=== PATIENT | female | born 1975 | race Caucasian/White ===

== ENCOUNTER 2018-11-05 19:47 | Emergency (ER) | payer OTHER ==
[2018-11-05 20:07] VITALS: BP 139/88
[2018-11-05] MEDS ORDERED: DOXYcycline CAP(*) 100 MG PO ONE (20:19)
--- NOTE | 2018-11-05 20:19 | UC ---
Throat Pain/Nasal Alvin HPI - HPI Summary HPI Summary: 3 day hx of fever, congestion, malaise, with past history of diabetes and continued smoking. - History of Current Complaint Chief Complaint: UCGeneralIllness Stated Complaint: CONGESTION,SORE THROAT,HEADACHE Time Seen by Provider: 11/05/18 20:07 Hx Obtained From: Patient Hx Last Menstrual Period: 10/13/18 Onset/Duration: Gradual Onset, Lasting Days - 4 Pain Intensity: 8 Cough: Productive Associated Signs & Symptoms: Positive: Dysphagia, Hoarseness, Sinus Discomfort, Nasal Discharge - Epiglottits Risk Factors Epiglottis Risk Factors: Negative - Allergies/Home Medications Allergies/Adverse Reactions: Allergies Allergy/AdvReac Type Severity Reaction Status Date / Time No Known Allergies Allergy Verified 11/05/18 20:04 Home Medications: Home Medications Ibuprofen 200 mg PO ONCE 11/05/18 [History Confirmed 11/05/18] Metformin HCl [Fortamet] 500 mg PO BID 11/05/18 [History Confirmed 11/05/18] PMH/Surg Hx/FS Hx/Imm Hx - Additional Past Medical History Additional PMH: psoriatic arthritis, not being treated. Previously Healthy: Yes Endocrine History: Diabetes - unsure of last a1c, believes control is ok. 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 Alcohol Use: None Substance Use Type: None Smoking Status (MU): Heavy Every Day Tobacco Smoker Amount Used/How Often: 1 PPD Review of Systems All Other Systems Reviewed And Are Negative: Yes Constitutional: Positive: Fever, Fatigue ENT: Positive: Sore Throat, Sinus Congestion, Sinus Pain/Tenderness Respiratory: Positive: Cough Is Patient Immunocompromised?: No Physical Exam Triage Information Reviewed: Yes Appearance: Well-Nourished, Ill-Appearing Vital Signs: Initial Vital Signs Temp 99.3 F 11/05/18 20:02 Pulse 102 11/05/18 20:02 Resp 18 11/05/18 20:02 BP 139/88 11/05/18 20:02 Pulse Ox 100 11/05/18 20:02 Eyes: Positive: Conjunctiva Inflamed ENT: Positive: Pharyngeal erythema, TM dull, Sinus tenderness - right maxillary Neck: Positive: Supple, Nontender, No Lymphadenopathy Respiratory: Positive: Decreased breath sounds, Rhonchi - both bases, Wheezing Cardiovascular: Positive: RRR, No Murmur Musculoskeletal Exam: Normal Neurological: Positive: Alert, Muscle Tone Normal Psychological Exam: Normal Throat Pain/Nasal Course/Dx - Course Course Of Treatment: doxycycline for treatment of acute sinusitis and possible early pneumonia. - Differential Dx/Diagnosis Differential Diagnosis/HQI/PQRI: Laryngitis, Pharyngitis, Sinusitis Provider Diagnosis: Sinusitis, acute Discharge - Sign-Out/Discharge Documenting (check all that apply): Patient Departure All imaging exams completed and their final reports reviewed: No Studies - Discharge Plan Condition: Stable Disposition: HOME Prescriptions: DOXYcycline CAP(*) [DOXYcycline 100MG CAP(*)] 100 mg PO BID #20 cap Patient Education Materials: Sinusitis (ED) Referrals: No Primary Care Phys,NOPCP [Primary Care Provider] - Additional Instructions: Begin use of doxycycline to treat acute sinusitis; this is the choice because your lungs sound congested and doxy will cover a lung infection. I suggest a higher dose of ibuprofen for control of pain 600 to 800mg three times daily. If the doxy is upsetting your stomach, you can take it with food, but not with dairy products. You could use flonase spray or nasal saline to promote sinus drainage. - Billing Disposition and Condition Condition: STABLE Disposition: Home
== END 2018-11-05 20:44 | disposition home or self-care (01) ==
LOC: UCCORT 19:47
DX: E11.9 Type 2 diabetes mellitus without complications (principal); Z79.84 Long term (current) use of oral hypoglycemic drugs; F17.210 Nicotine dependence, cigarettes, uncomplicated; J01.90 Acute sinusitis, unspecified
CPT/HCPCS: 99202; A9270-GY; G0463

== ENCOUNTER 2018-11-08 16:09 | Emergency (ER) | payer OTHER ==
[2018-11-08 16:23] VITALS: BP 142/78
--- NOTE | 2018-11-08 17:00 | UC ---
Throat Pain/Nasal Alvin HPI - HPI Summary HPI Summary: Pt was seen 11/06/18 for c/o sinus pressure and pain. Was dx with sinusitis and began doxycycline rx. Pt sates that sinus pain and congestion have improved bu now has c/o ST and chest burning and cough. - History of Current Complaint Chief Complaint: UCGeneralIllness Stated Complaint: SORE THROAT,CHEST TIGHTNESS Time Seen by Provider: 11/08/18 16:39 Hx Obtained From: Patient Hx Last Menstrual Period: 10/13/18 ?: No Onset/Duration: Sudden Onset, Lasting Days, Still Present Severity: Severe Pain Intensity: 10 Pain Scale Used: 0-10 Numeric Cough: Nonproductive Associated Signs & Symptoms: Positive: Dysphagia, Fever Related History: Smoking - Epiglottits Risk Factors Epiglottis Risk Factors: Negative - Allergies/Home Medications Allergies/Adverse Reactions: Allergies Allergy/AdvReac Type Severity Reaction Status Date / Time No Known Allergies Allergy Verified 11/08/18 16:23 PMH/Surg Hx/FS Hx/Imm Hx Previously Healthy: Yes - Surgical History Surgical History: Yes Surgery Procedure, Year, and Place: X3 - Family History Known Family History: Positive: Cardiac Disease, Diabetes - Social History Occupation: Employed Full-time Lives: With Family Alcohol Use: None Substance Use Type: None Smoking Status (MU): Heavy Every Day Tobacco Smoker Amount Used/How Often: 1 PPD Have You Smoked in the Last Year: Yes Review of Systems All Other Systems Reviewed And Are Negative: Yes Constitutional: Positive: Fever, Chills, Fatigue Skin: Positive: Negative Eyes: Positive: Negative ENT: Positive: Sore Throat Respiratory: Positive: Cough Cardiovascular: Positive: Negative Gastrointestinal: Positive: Negative Genitourinary: Positive: Negative Motor: Positive: Negative Neurovascular: Positive: Negative Musculoskeletal: Positive: Negative Neurological: Positive: Negative Psychological: Positive: Negative Is Patient Immunocompromised?: No Physical Exam Triage Information Reviewed: Yes Appearance: Ill-Appearing Vital Signs: Initial Vital Signs Temp 98.2 F 11/08/18 16:20 Pulse 99 11/08/18 16:20 Resp 16 11/08/18 16:20 BP 142/78 11/08/18 16:20 Pulse Ox 100 11/08/18 16:20 Vital Signs Reviewed: Yes Eye Exam: Normal ENT Exam: Normal ENT: Positive: Nasal congestion Dental Exam: Normal Neck exam: Normal Respiratory: Positive: Wheezing Cardiovascular Exam: Normal Musculoskeletal Exam: Normal Neurological Exam: Normal Psychological Exam: Normal Skin Exam: Normal Diagnostics - Laboratory Diagnostic Studies Completed/Ordered: rapid strep:negative Throat Pain/Nasal Course/Dx - Differential Dx/Diagnosis Differential Diagnosis/HQI/PQRI: Pharyngitis, URI Provider Diagnosis: Cough in adult, Pharyngitis Discharge - Sign-Out/Discharge Documenting (check all that apply): Patient Departure All imaging exams completed and their final reports reviewed: No Studies - Discharge Plan Condition: Stable Disposition: HOME Prescriptions: Benzonatate CAP* [Tessalon 100 MG CAP*] 200 mg PO TID PRN #30 cap PRN Reason: Cough predniSONE TAB* [Deltasone 20 MG TAB*] 20 mg PO DAILY #4 tab Patient Education Materials: Pharyngitis (ED), Acute Cough (ED) Referrals: [facility] [Outside] - As Soon As Possible No Primary Care Phys,NOPCP [Primary Care Provider] - - Billing Disposition and Condition Condition: STABLE Disposition: Home - Attestation Statements Provider Attestation: Per institutional requirements, I have reviewed the chart, however, I was not consulted specifically or made aware of this patient by the midlevel provider. I did not personally evaluate, interact with , or disposition this patient
== END 2018-11-08 16:55 | disposition home or self-care (01) ==
LOC: UCCORT 16:09
DX: R05 Cough (principal); J06.9 Acute upper respiratory infection, unspecified
CPT/HCPCS: 87651; 99212; G0463